=== PATIENT | female | born 1950 | race Caucasian/White ===

== ENCOUNTER 2025-02-09 12:47 | Emergency (ER) | payer MEDICARE, SELFPAY ==
--- NOTE | 2025-02-09 | ECG_ITS ---
Test Reason : SOB Blood Pressure : */* mmHG Vent. Rate : 80 BPM Atrial Rate : 80 BPM P-R Int : 134 ms QRS Dur : 82 ms QT Int : 370 ms P-R-T Axes : 40 -9 22 degrees QTcB Int : 426 ms Normal sinus rhythm Normal ECG No previous ECGs available Referred By: Generic ED Physician Electronically Signed By: COLBY WU
--- NOTE | ~2025-02-09 | XR_ITS ---
EXAMINATION: XR CHEST CLINICAL INFORMATION: shortness of breath COMPARISON: None available. TECHNIQUE: Portable AP upright view of the chest was obtained. FINDINGS: Pulmonary reticular pattern. Patchy opacities. No gross pneumothorax or pleural effusion. Cardiomediastinal silhouette size is normal. Multilevel spondylosis. Degenerative changes in the shoulders. Old traumatic deformity left humeral head neck region. Osteopenia versus osteoporosis. XR/XR chest 1V IMPRESSION: Acute on chronic airspace disease versus pulmonary edema Electronically signed by: Neymar Gutierrez MD 02/09/2025 03:40 PM EST
[2025-02-09 13:12] VITALS: BP 122/67; PULSE 90; O2SAT 96
[2025-02-09 13:13] VITALS: BP 118/62; PULSE 92; RESP 18; TEMP 36.4; O2SAT 92; BMI 19.1
[2025-02-09 14:10] LABS: MANUAL DIFF FLAG NO
[2025-02-09 14:13] LABS: Hematocrit 37.5 % (37.0-47.0); Hemoglobin 12.0 g/dl (12.0-16.0); Imm Gran Abs Auto 0.06 X10*3/uL (0.00-0.03); Imm Gran Pct Auto 0.7 % (0.0-0.4); Lymphocytes Absolute Auto 0.7 X10*3/uL (1.2-4.9); Mean Corpuscular HGB Conc 32.0 g/dl (31.0-35.0); Mean Corpuscular Hemoglobin 28.0 pg (27.0-33.0); Mean Corpuscular Volume 87.4 fL (80.0-98.0); NRBC Abs Auto 0.000 X10*3/uL (0.0-0.012); NRBC Pct Auto 0.0 /100WBC (0.0-0.2); Platelet Count 149 X10*3/uL (160-400); Red Blood Count 4.29 X10*6/uL (4.20-5.50); White Blood Count 9.1 X10*3/uL (4.8-10.8)
--- NOTE | 2025-02-09 14:21 | ED_ITS ---
HPI - URI/Sore Throat General Chief Complaint: Upper Respiratory Symptoms Stated Complaint: INCR YOEL,RECENT PNA PER EMS Time Seen by Provider: 02/09/25 14:20 Source: patient and family Mode of arrival: ambulatory Limitations: no limitations History of Present Illness ED Provider: Dr. Ricky Causey HPI Narrative: 74-year-old female with a history of pulmonary fibrosis times 10 years, Parkinson's disease, diabetes mellitus, recent pneumonia who presents emergency department for evaluation of 1 week of increased dyspnea on exertion, cough productive of clear phlegm with no blood, shortness of breath, rhinorrhea and sore throat. Patient states she was in [place] 1 month prior and she was diagnosed with pneumonia. She was treated with Zithromax Z-Barney. Family states the patient has been experiencing lower back pain and left leg pain for 2 months after a fall. The son states she had was diagnosed with a compression fracture after the fall. Patient denied fever, chills. She denied chest pain, nausea, vomiting. She denied myalgias arthralgias. Related Data Previous Rx's ?Medication ?Instructions ?Recorded amoxicillin 500 mg capsule 1,000 mg (2 x 500 mg) PO TI D 5 02/09/25 days #30 caps doxycycline hyclate 100 mg tablet 100 mg PO Q12H 5 day s #10 tabs 02/09/25 prednisone 20 mg tablet 40 mg (2 x 20 mg) PO DAILY 5 days 02/09/25 #10 tabs Allergies Allergy/AdvReac Type Severity Reaction Status Date / Time No Known Allergies Allergy Verified 02/09/25 13:20 Review of Systems 2 Review of Systems: Yes all other systems are reviewed and are negative [facility] Past Medical History [facility] Narrative: Social history: She denies tobacco and alcohol use. Physical Exam 2 Vital Signs: Vital Signs: Last Vital Signs Temp 98.3 F 02/09/25 16:29 Pulse 76 02/09/25 16:29 Resp 19 02/09/25 16:29 BP 149/79 H 02/09/25 16:29 Pulse Ox 92 02/09/25 16:29 O2 Del Method Room Air 02/09/25 16:29 BMI result Body Mass Index 19.1 Vital signs were normal Exam: General: Awake, alert in no distress Head: Normocephalic, atraumatic EENT: PERRL, sclera and conjunctiva are normal, mouth with no erythema or exudates Neck: Supple, no adenopathy Lung: breath sounds symmetric, loud crackles at bases with no wheezing or rhonchi Chest: symmetric movement, nontender Heart: regular rate and rhythm, normal S1, S2 no murmurs or rubs Abdomen: soft, non-tender, nondistended, normal bowel sounds Back: no vertebral tenderness, no CVAT Extremities: no deformities, moves all extremities symmetrically, no edema Neuro: Awake, alert, oriented, normal speech, cranial nerves 2-12 intact, moves all extremities symmetrically Psych: Pleasant, cooperative Medical Decision Making Medical Decision Making MDM Narrative: 74-year-old female with a history of pulmonary fibrosis times 10 years, Parkinson's disease, diabetes mellitus, recent pneumonia who presents emergency department for evaluation of 1 week of increased dyspnea on exertion, cough productive of clear phlegm with no blood, shortness of breath, rhinorrhea and sore throat. The patient is treated 1 month ago with Zithromax Z-Barney for pneumonia while she was in [place]. Patient's review of systems negative for fever, chills, chest pain, nausea, vomiting, myalgias arthralgias. Vital signs were normal. Exam did reveal loud crackles at bases otherwise exam was unremarkable. Differential diagnosis: ?Includes but is not limited to pneumonia, bronchitis, viral syndrome, anemia, electrolyte abnormalities Course: 17:30 My interpretation patient's laboratory evaluation is as follows: CBC was unremarkable except for a low platelet count of a 149,000-this is chronic. BUN elevated 20 with a normal creatinine of 0.75. High sensitive troponin I was below detectable limits. COVID-19, influenza and RSV tests were negative. Chest x-ray is concerning for increased interstitial infiltrates which I believe is consistent with pneumonias post who pulmonary edema. I did discuss this with the patient's family. Patient will be treated for community-acquired pneumonia with amoxicillin 1000 mg 3 times a day x5 days, doxycycline 100 mg 3 times a day for 5 days and prednisone 40 mg daily for 5 days. The patient was given her 1st dose of these medications here in the emergency department. Family he was given printed and verbal instructions and the patient was discharged home in the care of her family. Differential Diagnosis Differential Diagnoses: The differential diagnosis associated with the presentation includes (See above) Admission/Observation Consideration of admission/observation: Escalation of care including admission/observation considered (Yes) Lab Data MDM Lab Attestation statement: I reviewed the patient's lab results. 02/09/25 14:05 02/09/25 14:05 Labs: Lab Results 02/09/25 Range/Units 14:05 WBC 9.1 (4.8-10.8) X10*3/uL RBC 4.29 (4.20-5.50) X10*6/uL Hgb 12.0 (12.0-16.0) g/dl Hct 37.5 (37.0-47.0) % MCV 87.4 (80.0-98.0) fL MCH 28.0 (27.0-33.0) pg MCHC 32.0 (31.0-35.0) g/dl RDW 15.0 (11.0-16.0) % Plt Count 149 L (160-400) X10*3/uL MPV 11.2 (9.4-12.3) fL Immature Gran % (Auto) 0.7 H (0.0-0.4) % Neut % (Auto) 83.4 H (45-73) % Lymph % (Auto) 7.6 L (20-40) % [place] % (Auto) 5.7 (2-11) % Eos % (Auto) 2.3 (0-4) % Baso % (Auto) 0.3 (0-2) % Lymph # (Auto) 0.7 L (1.2-4.9) X10*3/uL [place] # (Auto) 0.5 (0.1-1.2) X10*3/uL Eos # (Auto) 0.2 (0.0-0.4) X10*3/uL Baso # (Auto) 0.0 (0.0-0.2) X10*3/uL Abs Immat Gran (auto) 0.06 H (0.00-0.03) X10*3/uL Absolute Neuts (auto) 7.6 (2.0-8.3) x10*3/uL Absolute Nucleated RBC 0.000 (0.0-0.012) X10*3/uL Nucleated RBC % (auto) 0.0 (0.0-0.2) /100WBC Sodium 140 (135-145) mmol/L Potassium 4.3 (3.3-5.1) mmol/L Chloride 107 (96-108) mmol/L Carbon Dioxide 28 (22-29) mmol/L Anion Gap 9 L (12-20) BUN 20 H (9-16) mg/dL Creatinine 0.75 (0.5-1.4) mg/dL Estim Creat Clear Calc 47.7 Estimated GFR > 60 Random Glucose 90 (60-115) mg/dL Calcium 9.2 (8.4-10.2) mg/dL Total Bilirubin 0.2 (0.0-1.0) mg/dL AST 28 (5-31) U/L ALT < 6 (0-31) U/L Alkaline Phosphatase 109 (39-117) U/L Troponin I High Sens < 2.7 (<3.5-17.0) ng/L Total Protein 6.7 (6.5-8.0) g/dL Albumin 3.7 (3.5-5.0) g/dL Influenza Type A (PCR) NEGATIVE (Negative) Influenza Type B (PCR) NEGATIVE (Negative) RSV RNA Qual (PCR) NEGATIVE (Negative) SARS-CoV-2 RNA (RT-PCR) NEGATIVE (Negative) Independent Interpretation I performed an independent interpretation of an: EKG and Plain X-Ray Interpretation: My independent interpretation of the patient's 12 EKG done on 02/09/2025 at 13:54 hours is as follows: Normal sinus rhythm with a rate of 80, normal [place] interval, QRS duration QTC interval, no ST segment elevation, no ST segment depression, inverted T-waves in V1 and V2, no PACs, no PVCs. This has a normal EKG. No old EKG for comparison. My independent interpretation of the patient's one-view chest x-ray is as follows, increased interstitial infiltrates consistent with pulmonary fibrosis versus community-acquired pneumonia Radiology Impression Discussion of test interpretation with radiology: I have reviewed the radiologist's reading. Radiologist Impression: XR chest 1V IMPRESSION: Acute on chronic airspace disease versus pulmonary edema Electronically signed by: Neymar Gutierrez MD 02/09/2025 03:40 PM [facility] [place] Historian Clinical information obtained from an independent historian. History obtained from or confirmed by: Other (Son) Prescription Management I considered prescription management with: Antibiotic (I prescribed doxycycline and amoxicillin) and Other (I prescribed prednisone) Chronic Conditions Patient?s care impacted by: Diabetes and Other Discharge Plan Discharge Clinical Impression: Community acquired pneumonia, Interstitial lung disease Patient Disposition: Home, Self-Care Instructions: Community Acquired Pneumonia (ED) Additional Instructions: Your blood work was unremarkable. Your COVID-19, influenza and RSV tests were negative Your chest x-ray is consistent with pneumonia. Take amoxicillin 500 mg pills, 2 pills, every 6 hours (3 times a day) for 5 days. Take doxycycline 100 mg, 1 pill every 12 hours for 7 days Take prednisone 20 mg pills, 3 pills once a day for 5 days. While you ?are taking prednisone, do not take any NSAIDs (Motrin, Advil, ibuprofen, Aleve, naproxen). Take Tylenol (acetaminophen) 500 mg pills, 2 pills every 6 hours as needed for pain or fever. Follow-up with your doctor in 2 days. Please return to the emergency department if your symptoms get worse or if you develop any symptoms that are concerning to you. Prescriptions: New amoxicillin 500 mg capsule 1,000 mg PO TID 5 Days Qty: 30 0RF prednisone 20 mg tablet 40 mg PO DAILY 5 Days Qty: 10 0RF doxycycline hyclate 100 mg tablet 100 mg PO Q12H 5 Days Qty: 10 0RF Print Language: Tajik
[2025-02-09 14:40] LABS: Troponin-I High Sensitivity < 2.7 ng/L (<3.5-17.0)
[2025-02-09 14:41] LABS: Alanine Aminotransferase < 6 U/L (0-31); Albumin Level 3.7 g/dL (3.5-5.0); Alkaline Phosphatase 109 U/L (39-117); Anion Gap 9 (12-20); Aspartate Amino Transferase 28 U/L (5-31); Blood Urea Nitrogen 20 mg/dL (9-16); Calcium 9.2 mg/dL (8.4-10.2); Carbon Dioxide 28 mmol/L (22-29); Chloride 107 mmol/L (96-108); Creatinine Clr Calc Pharmacy 47.7; Estimated Glomerular Filt Rate > 60; Potassium 4.3 mmol/L (3.3-5.1); Sodium 140 mmol/L (135-145); Total Protein 6.7 g/dL (6.5-8.0)
[2025-02-09 14:49] LABS: Resp Syncy Virus RNA Qual PCR NEGATIVE (Negative); SARS COV2 PCR INHOUSE NEGATIVE (Negative)
[2025-02-09 16:29] VITALS: BP 149/79; PULSE 76; RESP 19; TEMP 36.8; O2SAT 92
[2025-02-09 17:57] VITALS: BP 149/79; PULSE 76; RESP 19; TEMP 36.8; O2SAT 92
== END 2025-02-09 18:03 | disposition home or self-care (01) ==
PROVIDERS: Emergency Provider Emergency Medicine Emergency Medical Services
DX: J18.9 Pneumonia, unspecified organism (principal); J84.10 Pulmonary fibrosis, unspecified; E11.9 Type 2 diabetes mellitus without complications; G20.A1 Parkinson's disease without dyskinesia, without mention of fluctuations
CPT/HCPCS: 71045; 80053; 84484; 85025; 87637; 93005; 99283

== ENCOUNTER → 2025-02-09 13:45 | Outpatient (BNV) | payer MEDICARE, SELFPAY | PROVIDERS: Emergency Provider Emergency Medicine Emergency Medical Services; Visit Provider Internal Medicine | DX: R06.02 Shortness of breath (principal) | CPT/HCPCS: 93010 ==

== ENCOUNTER → 2025-02-09 15:21 | Outpatient (BNV) | payer MEDICARE, SELFPAY | PROVIDERS: Emergency Provider Emergency Medicine Emergency Medical Services; Visit Provider Radiology Diagnostic Radiology | DX: R06.02 Shortness of breath (principal) | CPT/HCPCS: 71045 ==